=== PATIENT | female | born 1950 | race Caucasian/White ===

== ENCOUNTER 2020-01-11 12:58 | Outpatient (CLI) | payer MEDICARE, BC, SELFPAY ==
--- NOTE | ~2020-01-11 | XR_ITS ---
EXAMINATION: XR chest 2V EXAM DATE: 01/11/2020 13:51 INDICATION: Unspecified dementia. TECHNIQUE: Frontal and lateral projections of the chest obtained and reviewed. There is no prior billie dy for comparison. FINDINGS: The lungs are clear. There are no pleural effusions. The cardiomediastinal silhouette is within normal limits. There is no pneumothorax suspected. The bones and soft tissues are unremarkab le. IMPRESSION: Unremarkable chest x-ray exam. Reviewed, dictated and finalized at location B. AW GRADER
--- NOTE | ~2020-01-11 | MR_ITS ---
EXAMINATION: MR brain/brain stem wo con DATE: 01/11/2020 13:38 INDICATION: Unspecified dementia without behavioral disturbance. TECHNIQUE: Magnetic resonance imaging (MRI) of the brain and brainstem was performed without intraven ous contrast. Sequences included sagittal and axial T1-weighted FSE, axial diffusion-weighted FS EPI, axial T2*-weighted GRE, axial T2-weighted FLAIR Propeller, and axial T2-weighted Propeller. Apparent diffusion coefficient (ADC) maps were created. COMPARISON: Brain MRI 04/09/2004 FINDINGS: There are scattered areas of nonspecific increased T2-weighted signal intensity in the cere bral white matter. There is no intracranial hemorrhage, acute infarction, or abnormal intracranial ma ss lesion. The ventricles are normal in size. The mastoid air cells are normal. There is mild mucosal thickening in the ethmoid sinuses. There are likely changes of ocular lens replacement surgeries. IMPRESSION: 1. Mild nonspecific cerebral white matter disease, which likely represents chronic small vessel ische jimmy disease. Reviewed, dictated and finalized at location A. SHOP MECHANIC IMPRESSION: 1. Mild nonspecific cerebral white matter disease, which likely represents clearance representative ranjan small vessel ischemic disease.
--- NOTE | ~2020-01-11 | XR_ITS ---
EXAMINATION: XR thoracic spine 3V DATE: 01/11/2020 13:51 INDICATION: Dorsalgia, unspecified TECHNIQUE: AP, lateral and lateral swimmer's views of the thoracic spine were obtained. COMPARISON: None. FINDINGS: There is no fracture, dislocation, or subluxation. The vertebral body heights and alignment are normal. There is mild loss of intervertebral disc space height in the midthoracic spine. Small d egenerative osteophytes project from the anterior endplates of multiple vertebral bodies. The visuali zed portions of the thorax are unremarkable. IMPRESSION: 1. Mild to moderate thoracic spondylosis without acute findings. Reviewed, dictated and finalized at location A. T ATTENDANT
== END 2020-01-11 12:59 | disposition home or self-care (01) ==
LOC: ANHIMG 13:02
PROVIDERS: PCP Family Medicine; Visit Provider Physician Assistant Medical
DX: F03.90 Unspecified dementia, unspecified severity, without behavioral disturbance, psychotic disturbance, mood disturbance, and anxiety (principal); M54.9 Dorsalgia, unspecified; M47.814 Spondylosis without myelopathy or radiculopathy, thoracic region; R90.82 White matter disease, unspecified
CPT/HCPCS: 70551; 71046; 72072

== ENCOUNTER 2020-01-23 14:38 | Outpatient (CLI) | payer MEDICARE, SELFPAY ==
--- NOTE | ~2020-01-23 | MM_ITS ---
EXAMINATION: MM screening [facility] BI w geovany HISTORY: Screening mammogram TECHNIQUE: Craniocaudal and mediolateral oblique 3-D tomosynthesis images were obtained and synthetic 2-D images were generated. CAD analysis was submitted and interpreted. COMPARISON: 01/17/2019, 01/06/2018, 10/26/2016 BREAST PARENCHYMAL COMPOSITION: There are scattered areas of fibroglandular density. FINDINGS: There is no evidence of suspicious mass, calcification, or architectural distortion to sugg est malignancy in either breast. There has been no suspicious interval change. IMPRESSION: 1. No mammographic evidence of malignancy. 2. Recommend routine screening mammography in one year. BI-RADS Category 1: Negative Reviewed, dictated and finalized at location A.
== END 2020-01-23 14:39 | disposition home or self-care (01) ==
LOC: ANHIMG 14:44
PROVIDERS: PCP Family Medicine; Visit Provider Obstetrics & Gynecology
DX: Z12.31 Encounter for screening mammogram for malignant neoplasm of breast (principal)
CPT/HCPCS: 77063; 77067

== ENCOUNTER 2021-01-23 14:37 | Outpatient (CLI) | payer MEDICARE, SELFPAY ==
--- NOTE | ~2021-01-23 | MM_ITS ---
EXAMINATION: MM screening [facility] BI w geovany HISTORY: Screening mammogram TECHNIQUE: Craniocaudal and mediolateral oblique 3-D tomosynthesis images were obtained and synthetic 2-D images were generated. CAD analysis was submitted and interpreted. COMPARISON: 01/23/2020, 01/17/2019, 01/06/2018 bilateral digital screening mammogram examinations BREAST PARENCHYMAL COMPOSITION: There are scattered areas of fibroglandular density. FINDINGS: There is no evidence of suspicious mass, calcification, or architectural distortion to sugg est malignancy in either breast. There has been no suspicious interval change. IMPRESSION: 1. No mammographic evidence of malignancy. 2. Recommend routine screening mammography in one year. BI-RADS Category 1: Negative Reviewed, dictated and finalized at location A. TAL ART DIRECTOR
== END 2021-01-23 14:38 | disposition home or self-care (01) ==
LOC: ANHIMG 14:46
PROVIDERS: PCP Family Medicine; Visit Provider Obstetrics & Gynecology
DX: Z12.31 Encounter for screening mammogram for malignant neoplasm of breast (principal)
CPT/HCPCS: 77063; 77067

== ENCOUNTER 2022-02-26 14:38 | Outpatient (CLI) | payer MEDICARE, SELFPAY ==
--- NOTE | ~2022-02-26 | MM_ITS ---
EXAMINATION: MM screening [facility] BI w geovany HISTORY: Screening TECHNIQUE: Craniocaudal and mediolateral oblique 3-D tomosynthesis images were obtained and synthetic 2-D images were generated. CAD analysis was submitted and interpreted. COMPARISON: Comparison to multiple prior studies sequentially, with oldest reviewed study dated 09/17. BREAST PARENCHYMAL COMPOSITION: Breast composed of scattered areas of fibroglandular density FINDINGS: There is no evidence of suspicious mass, calcification, or architectural distortion to sugg est malignancy in either breast. There has been no suspicious interval change. IMPRESSION: 1. No mammographic evidence of malignancy. 2. Recommend routine screening mammography in one year. BI-RADS Category 1: Negative Reviewed, dictated and finalized at location A.
== END 2022-02-26 14:39 | disposition home or self-care (01) ==
LOC: ANHIMG 14:40
PROVIDERS: PCP Family Medicine; Visit Provider Obstetrics & Gynecology
DX: Z12.31 Encounter for screening mammogram for malignant neoplasm of breast (principal)
CPT/HCPCS: 77063; 77067

== ENCOUNTER 2022-03-19 00:56 | Day surgery (SDC) | payer MEDICARE, SELFPAY ==
[2022-03-13 11:46] VITALS: BMI 32.4
[2022-03-19 07:04] VITALS: BP 137/75; PULSE 51; RESP 18; TEMP 36.6; O2SAT 97
[2022-03-19] MEDS: LACTATED RINGERS 1,000 ML 150 ML IV CONT (07:19)
--- NOTE | 2022-03-19 07:22 | WPDGICN ---
Assessment and Plan Assessment and plan (1) Positive colorectal cancer screening using Cologuard test: Code(s): R19.5 - Other fecal abnormalities Status: Acute Assessment and Plan: Patient had positive Cologuard. For this reason colonoscopy will be performed. Further recommendations will be given after endoscopy. (2) Paroxysmal atrial fibrillation: Code(s): I48.0 - Paroxysmal atrial fibrillation Status: Acute Assessment and Plan: Xarelto taken because of paroxysmal atrial fibrillation will be held briefly for the colonoscopy. GI Consult Note Consult date/time: 03/19/22 07:22 HPI: Megan Krause is a 72 year old female Presents for screening colonoscopy. Patient recently had a Cologuard test that was positive. Patient states that her current weight appetite and bowel movements are normal. She denies abdominal pain. She has had no significant bleeding. Her past history is significant for atrial fibrillation for which she now takes Xarelto anticoagulation. Patient did notice a spotting of blood while taking preparation for colonoscopy. She attributes this to known hemorrhoids. Her family history is noncontributory. Previous colonoscopy many years ago was unremarkable. Review of Systems Review of Systems: All systems reviewed & are unremarkable except as noted in HPI and below PMFSH Past Medical History Medical History Benign essential HTN Gastro-esophageal reflux disease with esophagitis Nicotine dependence, unspecified, in remission Prediabetes Family History Family History (Updated 01/27/22 @ 10:05 by Alberta Mckeon MD) Sibling Family history of multiple sclerosis Father Acute myocardial infarction Other Suicide niece Other Family history of alcoholism Family history of cardiovascular disease Family history of malignant neoplasm Hypertension Social History Social History (Updated 01/21/22 @ 10:56 by NICOLE Vaughan) Smoking packs per day: 1 Smoking cigarettes per day: 20.0 Years smoked: 3 Smoking pack-years: 3.00 Second hand tobacco smoke exposure: Yes Smoking end date: 11/15/94 Alcohol intake: never Substance use: never Substance use type: does not use Living arrangements: with family Spiritual care concerns: No Meds Home Medications and Allergies Home Medications Medication Instructions Recorded Confirmed Type cetirizine 10 mg tablet 10 mg PO HS tablet 10/17/19 03/13/22 History cholecalciferol (vitamin D3) 50 2,000 unit PO HS 12/03/19 04/29/22 History mcg (2,000 unit) tablet rivaroxaban 20 mg tablet 20 mg PO QPM 05/14/20 03/13/22 History atorvastatin 10 mg tablet 10 mg PO .qd #90 tablet 07/22/21 03/13/22 Rx telmisartan 40 mg tablet 40 mg PO DAILY #90 tablet 01/06/22 03/13/22 Rx Citracal plus D 200 mg PO DAILY 03/13/22 03/13/22 History ascorbic acid (vitamin C) 1 g PO DAILY 03/13/22 03/13/22 History fluticasone propionate [Flonase 2 spray INTRANASAL DAILY 03/13/22 03/13/22 History Allergy Relief] hydrochlorothiazide 12.5 mg PO DAILY 03/13/22 03/13/22 History levothyroxine 125 mcg PO DAILY 03/13/22 03/13/22 History mv,Ca,min-folic acid-vit K1 1 tablet PO DAILY 03/13/22 03/13/22 History [One-A-Day Women's 50 Plus] nebivolol [Bystolic] 5 mg PO HS 03/13/22 03/13/22 History zinc sulfate [Zinc-25] 25 mg PO DAILY 03/13/22 03/13/22 History Allergies Allergy/AdvReac Type Severity Reaction Status Date / Time latex Allergy Severe BLISTER, Verified 03/19/22 07:01 LOCAL REACTION AFTER VAG EXAMS strawberry Allergy Severe Swelling Verified 03/19/22 07:01 of Lip/Tongue/Throat amlodipine Allergy Intermediate abdominal Verified 03/19/22 07:01 bloating/ chest pressure lisinopril Allergy Intermediate Skin Verified 03/19/22 07:01 Reaction Penicillins Allergy Intermediate Unknown Verified
--- NOTE | 2022-03-19 07:36 | WPDANESEPPF ---
Anes - Initial Pre Proc Eval Procedure: Operation Date: 03/19/22 08:00 Proposed Procedures p Colonoscopy - Douglas Ramirez MD Date/Time: 03/19/22 07:36 Surgeon: Douglas Ramirez MD Pre Op Diagnosis: positive cologuard Patient Data Age: 72 Gender: F Height: 1.65 m Weight: 89.9 kg Last Vital Signs Temp 36.6 C 03/19/22 07:04 Pulse 51 L 03/19/22 07:04 Resp 18 03/19/22 07:04 BP 137/75 03/19/22 07:04 Pulse Ox 97 03/19/22 07:04 Allergies Allergy/AdvReac Type Severity Reaction Status Date / Time latex Allergy Severe BLISTER, Verified 03/19/22 07:01 LOCAL REACTION AFTER VAG EXAMS strawberry Allergy Severe Swelling Verified 03/19/22 07:01 of Lip/Tongue/Throat amlodipine Allergy Intermediate abdominal Verified 03/19/22 07:01 bloating/ chest pressure lisinopril Allergy Intermediate Skin Verified 03/19/22 07:01 Reaction Penicillins Allergy Intermediate Unknown Verified 03/19/22 07:01 Sulfa (Sulfonamide Allergy Intermediate Hives Verified 03/19/22 07:01 Antibiotics) Kiwi Allergy Severe THROAT Uncoded 03/19/22 07:01 SWELLING Home Medications Medication Instructions Recorded Confirmed Type cetirizine 10 mg tablet 10 mg PO HS tablet 10/17/19 03/13/22 History cholecalciferol (vitamin D3) 50 2,000 unit PO HS 10/17/19 03/13/22 History mcg (2,000 unit) tablet rivaroxaban 20 mg tablet 20 mg PO QPM 05/14/20 03/13/22 History atorvastatin 10 mg tablet 10 mg PO .qd #90 tablet 07/22/21 03/13/22 Rx telmisartan 40 mg tablet 40 mg PO DAILY #90 tablet 01/06/22 03/13/22 Rx Citracal plus D 200 mg PO DAILY 03/13/22 03/13/22 History ascorbic acid (vitamin C) 1 g PO DAILY 03/13/22 03/13/22 History fluticasone propionate [Flonase 2 spray INTRANASAL DAILY 03/13/22 03/13/22 History Allergy Relief] hydrochlorothiazide 12.5 mg PO DAILY 03/13/22 03/13/22 History levothyroxine 125 mcg PO DAILY 03/13/22 03/13/22 History mv,Ca,min-folic acid-vit K1 1 tablet PO DAILY 03/13/22 03/13/22 History [One-A-Day Women's 50 Plus] nebivolol [Bystolic] 5 mg PO HS 03/13/22 03/13/22 History zinc sulfate [Zinc-25] 25 mg PO DAILY 03/13/22 03/13/22 History Patient hx anesthesia problems: post op nausea/vomiting Family hx anesthesia problems: none Results Review: All pre-operative results and documents have been reviewed as part of the pre-operative evaluation. [facility] Past Medical History Medical History Benign essential HTN Gastro-esophageal reflux disease with esophagitis Hypothyroidism, unspecified Nicotine dependence, unspecified, in remission JIA (obstructive sleep apnea) Paroxysmal atrial fibrillation Prediabetes Family History Family History Sibling Family history of multiple sclerosis Father Acute myocardial infarction Other Suicide niece Other Family history of alcoholism Family history of cardiovascular disease Family history of malignant neoplasm Hypertension Social History Social History Smoking packs per day: 1 Smoking cigarettes per day: 20.0 Years smoked: 3 Smoking pack-years: 3.00 Second hand tobacco smoke exposure: Yes Smoking end date: 11/15/94 Alcohol intake: never Substance use: never Substance use type: does not use Living arrangements: with family Spiritual care concerns: No Anes - Eval Final PreProcedure Day of Procedure 03/19/22 07:36 Patient weight: obese Heart: regular rate and rhythm Lungs: clear to auscultation Airway: Mallampati scale class III Neurological: alert and oriented Last oral intake: >/= 8 hours ASA classification: III Emergent: no Anesthetic plan: proceed Anesthesia type and monitoring: general GIVS and standard monitoring Results Review: All pre-operative results and documents have been
[2022-03-19 08:13] VITALS: BP 112/61; PULSE 66; RESP 14; O2SAT 97
[2022-03-19 08:23] VITALS: BP 122/68; PULSE 57; RESP 18; O2SAT 97
[2022-03-19 08:33] VITALS: BP 129/65; PULSE 59; RESP 17; O2SAT 97
== END 2022-03-19 08:46 | disposition home or self-care (01) ==
PROVIDERS: PCP Family Medicine; Visit Provider Internal Medicine Gastroenterology
PROC: 0DJD8ZZ Inspection of Lower Intestinal Tract, Via Natural or Artificial Opening Endoscopic (ICD-10-PCS; CPT 45378; principal; 2022-03-19 08:00)
DX: R19.5 Other fecal abnormalities (principal); D12.5 Benign neoplasm of sigmoid colon; I48.0 Paroxysmal atrial fibrillation; I10 Essential (primary) hypertension; K64.8 Other hemorrhoids; K21.9 Gastro-esophageal reflux disease without esophagitis; R73.03 Prediabetes; Z87.891 Personal history of nicotine dependence
CPT/HCPCS: 45380; 88305; J2704; J7120

== ENCOUNTER 2023-03-02 08:15 | Outpatient (CLI) | payer MEDICARE, SELFPAY ==
--- NOTE | 2023-03-27 18:45 | WPDSLEEPSTUD ---
Sleep Study Date of Study: 03/02/23 <Meron Angel, DO - Last Filed: 03/27/23 19:27> Ordering Provider: DONNA Michaud <Meron Angel, DO - Last Filed: 03/27/23 19:27> Interpreting Physician: Meron Angel DO <Meron Angel DO - Last Filed: 03/27/23 19:27> Sleep Study Type: CPAP Titration <Meron Angel DO - Last Filed: 03/27/23 19:27> Height: 1.65 m <Meron Angel DO - Last Filed: 03/27/23 19:27> Weight: 65.771 kg <Meron Angel DO - Last Filed: 03/27/23 19:27> Body Mass Index: 24.1 <Meron Angel DO - Last Filed: 03/27/23 19:27> 24.1 <Perla Ballard MD - Last Filed: 03/27/23 19:14> Neck Circumference (inches): 14.5 <Meron Angel DO - Last Filed: 03/27/23 19:27> [place]: 5 <Meron Angel DO - Last Filed: 03/27/23 19:27> Reason for Sleep Study On AutoPAP 10-20 cm H2O with EPR of 3. Pressure (95th percentile) was 19.5 cm H2O with residual AHI of 7.4. Patient will need BPAP to accommodate higher pressure settings. <Meron Angel, DO - Last Filed: 03/27/23 19:27> Sleep History The patient is a 73-year-old female with hypertension, GERD, hypothyroidism, paroxysmal atrial fibrillation, prediabetes, history of tobacco use, seasonal allergies and previously diagnosed sleep apnea on CPAP that had a sleep study ordered by the pulmonary group to get her set up with a BPAP machine if needed. 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 She denies awakening from sleep short of breath. She rarely awakens at night with heartburn, belching or cough. She rarely snores and is never loud enough that others complain. She denies having trouble sleeping when she has a cold. She denies waking up gasping for air throughout the night. She rarely has breathing problems at night observed by herself or others. She denies sweating excessively at night. She rarely has heart palpitations or irregular heartbeats during the night. She denies falling asleep during the day and while driving. She denies sleep paralysis, cataplexy and hypnagogic / hypnopompic hallucinations. She denies feeling afraid of going to sleep. She denies having nightmares. She occasionally remembers her dreams. She occasionally has thoughts racing through her mind. She rarely feels sad or depressed. She rarely has anxiety. She occasionally has muscular tension. She denies noticing parts of her body jerk. She denies kicking during the night. She denies having crawling and aching feelings in her legs. She occasionally has leg cramps throughout the night. She denies grinding her teeth during sleep and denies awakening with morning jaw pain. She is occasionally bothered by pain during the day but rarely awakened by pain during the night. She occasionally wakes up feeling stiff in the morning. She occasionally wakes up with sore or achy muscles. She occasionally wakes up with pain in the neck, spine or other joints. She goes to bed at 12:30 a.m. on weekdays and 11:30 p.m. on the weekends. The amount of time it takes for her to fall asleep is variable. She wakes up 3-4 times throughout the night to change positions or to moisten her mouth. She is able to fall back asleep relatively quickly. She wakes up at 9:00 a.m. on weekdays and at 6:00 a.m. on the weekends. She typically gets 7 8 hours of sleep per night. She does not stay in bed after waking up in the morning. She currently lives with her . She does not consume any caffeinated beverages within 2 hours of bedtime. she denies engaging in physical exercise before bedtime. She will watch television before falling asleep. She will rarely take naps in the afternoon or the evening but when she does it is refreshing. She consumes 2 cups of caffeinated tea or coffee per day. She quit smoking cigarettes 50 years ago. She denies alcohol and recreational drug use. <Taty
[2023-03-27 19:14] VITALS: BMI 24.1
== END 2023-03-03 07:08 | disposition home or self-care (01) ==
LOC: ANHCSM 08:16
PROVIDERS: PCP Family Medicine; Visit Provider Physician Assistant
DX: G47.33 Obstructive sleep apnea (adult) (pediatric) (principal)
CPT/HCPCS: 95811